=== PATIENT | female | born 1950 | race Caucasian/White ===

== ENCOUNTER → 2017-07-25 | Outpatient (CLI) | payer MEDICARE, OTHER ==
--- NOTE | 2017-07-25 16:12 | RAD ---
Examination: 3 views of the right ankle History: History of right ankle pain status post fall Comparison: None available. Findings: Severe joint space loss identified in the ankle joint. Moderate soft tissue swelling identified surrounding the ankle joint. Moderate joint space loss identified in the subtalar joints. Small osteophyte formation identified in the neck of the talus and in the anterior aspect of the tibial plafond. Impression: 1. Severe degenerative changes ankle joint. 2. Moderate soft tissue swelling identified surrounding the ankle joint, nonspecific could be secondary to injury. 3. Small anterior osteophyte formation identified in the tibial plafond with a small osteophyte at the talar neck. Correlate for anterior impingement.
== END | disposition home or self-care (01) ==
LOC: DXRAD 15:41
PROVIDERS: ATTEND Family Medicine
DX: M19.071 Primary osteoarthritis, right ankle and foot (principal); M25.771 Osteophyte, right ankle
CPT/HCPCS: 73610

== ENCOUNTER 2020-07-26 22:53 | Emergency (ER) | payer MEDICARE, OTHER ==
[~2020-07-26] VITALS: Ht 162.6 cm; Wt 118.0 kg
--- NOTE | 2020-07-26 23:09 | EKG ---
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
--- NOTE | 2020-07-26 23:18 | RAD ---
EXAM: CHEST AP ONLY 07/26/2020 10:57 PM CLINICAL INDICATION:Acute onset epigastric pain after eating. COMPARISON:Chest radiograph 08/25/2015 TECHNIQUE:AP upright view of the chest FINDINGS:There is a new right IJ port with tip over the superior vena cava. The heart is at the upper limit of normal in size. There are linear opacities at the right lung base and possible lucency under the right hemidiaphragm. No pleural effusion or pneumothorax. No acute osseous abnormality. IMPRESSION: 1. Possible pneumoperitoneum seen under the right hemidiaphragm. CT abdomen and pelvis could be obtained to further evaluate. 2. Right basilar opacities, likely atelectasis. Results discussed by Dr. Cortes with Dr. Gongora at 11:15 PM on 07/26/2020. Electronically signed by: Brenda Cortes MD (07/26/2020 11:15 PM) [id number]
--- NOTE | 2020-07-26 23:30 | PHYS DOC ---
General Adult EDM: Chief Complaint: ABDOMINAL PAIN HPI: HPI: 70-year-old female presents with epigastric abdominal pain. The patient was eating bagel pizza bites. 1 hour later, she began to have epigastric pain. She took several different antacids without relief. The pain seemed to be getting worse. It comes in waves and is a sharp intense cramping. It radiates through to her back. She denies chest pain or diaphoresis. Patient has a history of kidney cancer with metastasis to her lungs and bones. She denies any falls or trauma. She denies fever or chills. Review of Systems: Review of Systems: Constitutional: Denies fever or chills Eyes: Denies change in visual acuity HENT: Denies nasal congestion or sore throat Respiratory: Denies cough or shortness of breath Cardiovascular: Denies chest pain or edema GI: Epigastric abdominal pain. Denies nausea, vomiting, bloody stools or diarrhea : Denies dysuria Musculoskeletal: Denies back pain or joint pain Integument: Denies rash Neurologic: Denies headache, focal weakness or sensory changes Endocrine: Denies polyuria or polydipsia Lymphatic: Denies swollen glands Psychiatric: Denies depression or anxiety Heart Score: Risk Factors: Risk Factors: DM, Current or recent (<one month) smoker, HTN, HLP, family history of CAD, obesity. Risk Scores: Score 0 - 3: 2.5% MACE over next 6 weeks - Discharge Home Score 4 - 6: 20.3% MACE over next 6 weeks - Admit for Clinical Observation Score 7 - 10: 72.7% MACE over next 6 weeks - Early Invasive Strategies Current Medications: Current Meds: Current Medications Medications (Trade) Dose Ordered Sig/Earlene Start Time Stop Time Status Last Admin Dose Admin Iohexol (Omnipaque 300 Mg/ml) 75 ml 1X ONCE 07/26/20 23:30 07/26/20 23:31 UNV Sodium Chloride 500 ml @ 0 mls/hr 1X ONCE 07/26/20 23:00 07/26/20 23:01 UNV Physical Exam: PE: Constitutional: Well developed, well nourished, morbid obesity, no acute distress, non-toxic appearance. [] HENT: Normocephalic, atraumatic, bilateral external ears normal, oropharynx moist, no oral exudates, nose normal. [] Eyes: PERRLA, EOMI, conjunctiva normal, no discharge. [] Neck: Normal range of motion, no tenderness, supple, no stridor. [] Cardiovascular: Heart rate regular rhythm, no murmur [] Lungs & Thorax: Bilateral breath sounds clear to auscultation [] Abdomen: Bowel sounds normal, soft, mild tenderness with palpation, no masses, no pulsatile masses. [] Skin: Warm, dry, no erythema, no rash. [] Back: No tenderness, no CVA tenderness. [] Extremities: No tenderness, no cyanosis, no clubbing, ROM intact, no edema. [] Neurologic: Alert and oriented X 3, normal motor function, normal sensory function, no focal deficits noted. [] Psychologic: Affect normal, judgement normal, mood normal. [] EKG: EKG: Sinus rhythm, rate 68, normal axis, first-degree heart block. [] Radiology/Procedures: Radiology/Procedures: [] Impressions: EXAM: CHEST AP ONLY 07/26/2020 10:57 PM CLINICAL INDICATION:Acute onset epigastric pain after eating. COMPARISON:Chest radiograph 08/25/2015 TECHNIQUE:AP upright view of the chest FINDINGS:There is a new right IJ port with tip over the superior vena cava. The heart is at the upper limit of normal in size. There are linear opacities at the right lung base and possible lucency under the right hemidiaphragm. No pleural effusion or pneumothorax. No acute osseous abnormality. IMPRESSION: 1. Possible pneumoperitoneum seen under the right hemidiaphragm. CT abdomen and pelvis could be obtained to further evaluate. 2. Right basilar opacities, likely atelectasis. Results discussed by Dr. Cortes with Dr. Foy at 11:15 PM on 07/26/2020. Electronically signed by: Brenda Cortes MD (07/26/2020 11:15 PM) [id number] DICTATED AND SIGNED BY: BRENDA CORTES MD DATE: 07/26/20 2315 CC: CHRIS FOY DO; ES KNIGHT MD ~ CT abdomen and pelvis with contrast: Reason for examination: Upper abdominal pain and nausea. Possible pneumoperitoneum on chest x-ray. Helical images were obtained through the abdomen and pelvis with intravenous administration of 75 cc Omnipaque 300. Reconstruction was performed in sagittal and coronal planes. Exposure: One or more of the following individualized dose reduction techniques were utilized for this examination: 1. Automated exposure control 2. Adjustment of the mA and/or kV according to patient size 3. Use of iterative reconstruction technique. There is some linear atelectasis at both lung bases. No pleural effusions are seen. The heart size is normal with no pericardial effusion. No focal abnormality seen at the liver, spleen, adrenal glands or pancreas. There is cholelithiasis with a distended gallbladder measuring at least 12 cm in greatest dimension. The abdominal aorta and inferior vena cava show no acute abnormalities. No abnormality seen at the stomach or duodenum. The small intestinal tract shows no abnormal dilatation, wall thickening or obstruction. There are a few scattered diverticuli in the descending and sigmoid colon with no diverticulitis or colitis. There is a small intestine present posterior to the liver under the right hemidiaphragm which appears to account for the air under the right hemidiaphragm seen on chest x-ray. There is a solitary left kidney with no left renal mass, renal calculus, hydronephrosis or evidence of obstructive uropathy. No abnormality seen at the bladder or vaginal cuff. No free fluid or free air is seen in the abdomen or pelvis. Right total hip prosthesis is present. No acute bony abnormalities are seen. 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 Cholelithiasis with a distended gallbladder. Electronically signed by: Debbie Rai MD (07/27/2020 12:58 AM) [facility] DICTATED AND SIGNED BY: DEBBIE RAI MD DATE: 07/27/2057 CC: CHRIS FOY DO; ES KNIGHT MD ~ Course & Med Decision Making: Course & Med Decision Making Pertinent Labs and Imaging studies reviewed. (See chart for details) The patient's chest x-ray showed possible pneumoperitoneum. I have ordered a CT of the abdomen and pelvis. The patient's labs are unremarkable. Her CT scan shows that the area seen of the diaphragm is due to the surgically removed kidney allowing small bowel to take up that space. There is not appear to be the patient does have cholelithiasis and distended gallbladder. I believe this is the most likely source of her discomfort. She was given 4 of Zofran and 2 morphine. This has controlled her pain. I have advised that she follow-up with her primary physician about her gallbladder and consider surgery consultation. She is stable for discharge at this time. [] Marcy Disclaimer: Marcy Disclaimer: This electronic medical record was generated, in whole or in part, using a voice recognition dictation system. Departure Departure: Impression: Primary Impression: Cholelithiases Qualified Codes: K80.20 - Calculus of gallbladder without cholecystitis without obstruction Additional Impression: Epigastric abdominal pain Disposition: HOME/RESIDENCE PRIOR TO ADM Condition: STABLE Referrals: ES KNIGHT MD (PCP) Patient Instructions: Cholelithiasis, [id number] Justification of Admission: Justification of Admission: Justification of Admission Dx: N/A CHRIS FOY DO Jul 26, 2020 23:30
[2020-07-26] MEDS ORDERED: IV NORMAL SALINE 500ML 500 ML ONE (23:33)
[2020-07-26] MEDS ORDERED: ONDANSETRON PF 4 MG/2 ML VIAL. ONE (23:33)
[2020-07-26] MEDS ORDERED: MORPHINE SULFATE 2 MG/ML DISP.SYRIN. ONE (23:33)
[2020-07-26] MEDS ORDERED: ONDANSETRON PF 4 MG/2 ML VIAL. IVP ONE (23:45)
[2020-07-26] MEDS ORDERED: CONTRAST GIVEN. MC PRN (23:45)
[2020-07-26] MEDS ORDERED: MORPHINE SULFATE 2 MG/ML DISP.SYRIN. IV ONE (23:45)
[2020-07-26] MEDS ORDERED: IOHEXOL 300 MG/ML 75 ML VIAL. IV ONE (23:45)
[2020-07-26] MEDS ORDERED: IV NORMAL SALINE 500ML 500 ML IV ONE (23:45)
[2020-07-27] MEDS ORDERED: cloNIDine HCL 0.1 MG TABLET PO ONE
[2020-07-27 00:02] LABS: BASO % 0 % (0-3); EOS # 0.5 x10^3/uL (0.0-0.7); EOS % 7 % (0-3); HEMATOCRIT 34.4 % (36.0-47.0); HEMOGLOBIN 11.4 g/dL (12.0-15.5); LYMPH # 0.7 x10^3/uL (1.0-4.8); LYMPH % 9 % (24-48); MEAN CORPUSCULAR HEMOGLOBIN 29 pg (25-35); MEAN CORPUSCULAR HGB CONC 33 g/dL (31-37); MEAN CORPUSCULAR VOLUME 88 fL (79-100); MONO # 0.4 x10^3/uL (0.0-1.1); MONO % 5 % (0-9); NEUT # 6.1 x10^3uL (1.8-7.7); NEUT % 78 % (31-73); PLATELET COUNT 271 x10^3/uL (140-400); RED BLOOD COUNT 3.92 x10^6/uL (3.50-5.40); RED CELL DISTRIBUTION WIDTH 15.4 % (11.5-14.5); WHITE BLOOD COUNT 7.7 x10^3/uL (4.0-11.0)
[2020-07-27 00:14] LABS: CALCIUM 9.7 mg/dL (8.5-10.1); GFR 54.7; POTASSIUM 3.6 mmol/L (3.5-5.1)
[2020-07-27 00:20] LABS: ALBUMIN 3.4 g/dL (3.4-5.0); ALBUMIN/GLOBULIN RATIO 0.8 (1.0-1.7); TOTAL BILIRUBIN 0.9 mg/dL (0.2-1.0); TOTAL PROTEIN 7.5 g/dL (6.4-8.2)
[2020-07-27 01:01] LABS: BILIRUBIN,URINE NEG (NEG); CLARITY,URINE HAZY; COLOR,URINE YELLOW; GLUCOSE,URINE NEG (NEG); NITRITE,URINE NEG (NEG); RBC,URINE 0 /HPF (0-2); UROBILINOGEN,URINE 0.2 mg/dL (0.2 mg/dL)
--- NOTE | 2020-07-27 01:01 | RAD ---
CT abdomen and pelvis with contrast: Reason for examination: Upper abdominal pain and nausea. Possible pneumoperitoneum on chest x-ray. Helical images were obtained through the abdomen and pelvis with intravenous administration of 75 cc Omnipaque 300. Reconstruction was performed in sagittal and coronal planes. Exposure: One or more of the following individualized dose reduction techniques were utilized for this examination: 1. Automated exposure control 2. Adjustment of the mA and/or kV according to patient size 3. Use of iterative reconstruction technique. There is some linear atelectasis at both lung bases. No pleural effusions are seen. The heart size is normal with no pericardial effusion. No focal abnormality seen at the liver, spleen, adrenal glands or pancreas. There is cholelithiasis with a distended gallbladder measuring at least 12 cm in greatest dimension. The abdominal aorta and inferior vena cava show no acute abnormalities. No abnormality seen at the stomach or duodenum. The small intestinal tract shows no abnormal dilatation, wall thickening or obstruction. There are a few scattered diverticuli in the descending and sigmoid colon with no diverticulitis or colitis. There is a small intestine present posterior to the liver under the right hemidiaphragm which appears to account for the air under the right hemidiaphragm seen on chest x-ray. There is a solitary left kidney with no left renal mass, renal calculus, hydronephrosis or evidence of obstructive uropathy. No abnormality seen at the bladder or vaginal cuff. No free fluid or free air is seen in the abdomen or pelvis. Right total hip prosthesis is present. No acute bony abnormalities are seen. 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 Cholelithiasis with a distended gallbladder. Electronically signed by: Scarlett Murillo MD (07/27/2020 12:58 AM) [facility]
[2020-07-27 01:02] LABS: BACTERIA,URINE FEW /HPF (0-FEW); SQUAMOUS EPITHELIAL CELL,UR OCC /LPF; WBC,URINE >40 /HPF (0-4)
[2020-07-27] MEDS ORDERED: HEPARIN PF 500 UNIT/5 ML DISP.SYRIN. IVP ONE (01:45)
[2020-07-27 01:50] VITALS: BP 172/91
[2020-07-27] MEDS ORDERED: MORPHINE SULFATE 2 MG/ML DISP.SYRIN. IV ONE (02:00)
== END 2020-07-27 01:58 | disposition home or self-care (01) ==
LOC: ER 22:53
DX: K80.20 Calculus of gallbladder without cholecystitis without obstruction (principal); R10.13 Epigastric pain
CPT/HCPCS: 36415; 71045; 74177; 80053; 81001; 83605; 84484; 85025; 87086; 93005; 96361; 96374; 96375; 96376; 99285; J2270; J2405; J7040; Q9967

== ENCOUNTER → 2020-08-01 | Outpatient (CLI) | payer OTHER ==
[2020-07-27 01:50] VITALS: BP 172/91
[2020-08-01 17:10] LABS: BASO % 1 % (0-3); EOS # 0.8 x10^3/uL (0.0-0.7); EOS % 15 % (0-3); HEMATOCRIT 33.3 % (36.0-47.0); HEMOGLOBIN 11.1 g/dL (12.0-15.5); LYMPH # 0.8 x10^3/uL (1.0-4.8); LYMPH % 17 % (24-48); MEAN CORPUSCULAR HEMOGLOBIN 29 pg (25-35); MEAN CORPUSCULAR HGB CONC 33 g/dL (31-37); MEAN CORPUSCULAR VOLUME 88 fL (79-100); MONO # 0.4 x10^3/uL (0.0-1.1); MONO % 7 % (0-9); NEUT # 3.1 x10^3uL (1.8-7.7); NEUT % 61 % (31-73); PLATELET COUNT 289 x10^3/uL (140-400); WHITE BLOOD COUNT 5.1 x10^3/uL (4.0-11.0)
[2020-08-01 17:38] LABS: ALBUMIN 3.2 g/dL (3.4-5.0); CALCIUM 9.6 mg/dL (8.5-10.1); DIRECT BILIRUBIN 0.2 mg/dL (0.0-0.2); GFR 54.7; TOTAL BILIRUBIN 0.7 mg/dL (0.2-1.0); TOTAL PROTEIN 7.7 g/dL (6.4-8.2)
== END | disposition home or self-care (01) ==
LOC: LAB 16:04
PROVIDERS: ATTEND Family Medicine
DX: K80.12 Calculus of gallbladder with acute and chronic cholecystitis without obstruction (principal)
CPT/HCPCS: 36415; 80048; 80076; 83690; 85025